=== PATIENT | male | born 1935 | race Caucasian/White ===

== ENCOUNTER 2017-01-01 09:05 | Emergency (ER) | payer MEDICARE ==
[~2017-01-01] VITALS: Ht 177.8 cm; Wt 98.0 kg
[2017-01-01 09:08] VITALS: BP 157/99; PULSE 76; RESP 20; TEMP 97.5; O2SAT 93
[2017-01-01] MEDS ORDERED: DIAZ2TAB PO (09:27)
[2017-01-01] MEDS ORDERED: LOSA100T PO (09:27)
[2017-01-01] MEDS ORDERED: BISO10TA2 PO (09:27)
[2017-01-01] MEDS ORDERED: ASPI81CH CHEW (09:27)
[2017-01-01] MEDS ORDERED: FURO1TAB62 PO (09:48)
--- NOTE | 2017-01-01 09:49 | PD ---
HPI Chief Complaint: Pain: Acute or Chronic Time Seen by Provider: 09:18 Travel History International Travel<30 days: No Contact w/Intl Traveler<30days: No Traveled to known affect area: No History of Present Illness HPI Is an 81-year-old man who presents to the emergency department complaining of soreness and achiness in his legs. His a history of some swelling in his legs at times. He states that over the past several days he's been on his feet more , his girlfriend been in the hospital slip and walking along hallway and walking her dog more. States since then he said more achiness in his legs had trouble getting up this morning because of pain. His a history of lymphoma in the past, hypertension hyperlipidemia and arthritis. He is on a small dose of HCTZ daily. He states he typically has trouble swallowing is on his feet a lot. Denies any kidney problems. States he had lab work couple weeks ago. No other complaints. History Past Medical History Narrative Medical Lymphoma Hypertension Hyperlipidemia Arthritis Social History Alcohol Use: No Tobacco Use: No Allergies-Medications (Allergen,Severity, Reaction): Coded Allergies: No Known Allergies (Unverified , 01/01/17) Reported Meds & Prescriptions Reported Meds & Active Scripts Active Reported Aspirin 81 Mg Chew 81 Mg CHEW DAILY Diazepam 2 Mg Tab 2 Mg PO HS PRN Bisoprolol-Hydrochlorothiazide 10-6.25 Mg Tab 1 Tab PO DAILY Losartan (Losartan Potassium) 100 Mg Tab 100 Mg PO DAILY Review of Systems Except as stated in HPI: all other systems reviewed are Neg Physical Exam Narrative GENERAL: 81-year-old man, no acute distress. SKIN: Focused skin assessment warm/dry. HEAD: Atraumatic. Normocephalic. EYES: Pupils equal and round. No scleral icterus. No injection or drainage. ENT: No nasal bleeding or discharge. Mucous membranes pink and moist. NECK: Trachea midline. No JVD. CARDIOVASCULAR: Regular rate and rhythm. No murmur appreciated. RESPIRATORY: No accessory muscle use. Clear to auscultation. Breath sounds equal bilaterally. GASTROINTESTINAL: Abdomen soft, non-tender, nondistended. Hepatic and splenic margins not palpable. MUSCULOSKELETAL: No obvious deformities. Some chronic edema in the lower extremities. Legs are little bit cool but still well perfused. Data Data Last Documented VS Vital Signs Date Time Temp Pulse Resp B/P Pulse Ox O2 Delivery O2 Flow Rate FiO2 01/01/17 09:08 97.5 76 20 157/99 93 Room Air [facility] Medical Decision Making Medical Screen Exam Complete: Yes Emergency Medical Condition: Yes Differential Diagnosis Edema, swelling, arthritis, back problems, other Narrative Course Medical decision making Very pleasant 81-year-old man presents emergent arm and increased soreness in his legs after increase walking for the past couple days. He is a little bit more edema than he typically does. Denies any shortness of breath, or history of kidney disease. Lab work done recently. He's been visiting his girlfriend here in the hospital a lot and so he wanted to stop by to see if there is anything else can do. He takes aspirin occasionally for pain. No other medications. Recommend Tylenol as needed for pain. We'll recommend 3 days of Lasix, and consider compression stockings and elevation. He'll follow-up with his primary physician. Diagnosis Primary Impression: Bilateral leg pain Additional Instructions: Keep legs elevated when you're at home. Consider compression stockings when your up on your feet. Take Lasix as prescribed for 3 days. Use acetaminophen as needed for pain. Follow-up with her primary doctor in the next one to 2 weeks for repeat evaluation. Med/Other Pt SpecificInfo: Prescription(s) given Scripts Furosemide (Lasix)20 Mg Tab20 Mg PO DAILY 3 Days Ref 0 Prov:Wing Colindres MD 01/01/17 Disposition: 01 DISCHARGE HOME Condition: Stable Wing Colindres MD Jan 01, 2017 09:49
[2017-01-01] MEDS ORDERED: ACETAMINOPHEN 325 MG TAB PO ONE (10:00)
== END 2017-01-01 10:01 | disposition home or self-care (01) ==
LOC: NEPD 09:05
DX: M79.605 Pain in left leg (principal); M79.604 Pain in right leg; I10 Essential (primary) hypertension
CPT/HCPCS: 99283

== ENCOUNTER 2017-01-04 02:03 | Inpatient (IN) | payer MEDICARE ==
[~2017-01-04] VITALS: Ht 177.8 cm; Wt 97.3 kg
[2017-01-04] VITALS (21 sets, daily range): BP systolic 128–238; BP diastolic 60–110; PULSE 67–89; RESP 18–24; TEMP 97–98.3; O2SAT 93–99
[~2017-01-04 02:03] MED LIST: ASPI81CH CHEW; BISO10TA2 PO; DIAZ2TAB PO; FURO1TAB62 PO; LOSA100T PO
[2017-01-04 03:27] LABS: AUTOMATED NEUTROPHIL # 4.7 TH/MM3 (1.8-7.7); BASOPHIL % 0.7 % (0.0-2.0); EOSINOPHIL # 0.2 TH/MM3 (0-0.4); EOSINOPHIL % 2.7 % (0.0-4.0); HEMATOCRIT 46.6 % (39.0-51.0); HEMO FLAGS DIFF FINAL; LYMPH % 21.9 % (9.0-44.0); LYMPHOCYTE # 1.5 TH/MM3 (1.0-4.8); MEAN CELL VOLUME 84.4 FL (80.0-100.0); MONO % 7.2 % (0.0-8.0); NEUT % 67.5 % (16.0-70.0); PLATELET COUNT 164 TH/MM3 (150-450); RED BLOOD COUNT 5.52 MIL/MM3 (4.50-5.90); RED CELL DISTRIBUTION WIDTH 14.2 % (11.6-17.2); WHITE BLOOD COUNT 6.9 TH/MM3 (4.0-11.0)
--- NOTE | 2017-01-04 03:35 | PD ---
HPI Chief Complaint: Edema Time Seen by Provider: 02:32 Travel History International Travel<30 days: No Contact w/Intl Traveler<30days: No Traveled to known affect area: No History of Present Illness HPI The patient is an 81 year old male who presents to the [facility] emergency department with a history of awakening from sound sleep with bilateral shoulder , arm pain, neck pain, and lower extremity pain prior to her arrival. The patient reports that he is currently staying at a friend's house who is hospitalized, as he is taking care of her dog. He reports that he has had increased pain in his extremities since being more mobile than usual while caring for this friend's animal. He also reports that he has been back and forth to the hospital which is also required more activity than his usual. The patient reports that he has chronic lower extremity edema. He reports that he was in the emergency department on January 01 for evaluation of his leg pains and edema. The patient was given a prescription for Lasix to complete over a three- day period, however he reports that he was are he on hydrochlorothiazide and decided not to start this medication since it is also a diuretic. The patient denies having any chest pain, chest pressure, or shortness of breath. By the time the patient arrived in the emergency department for evaluation he reports that his pain has improved. He reports that he became anxious and should have just taken a Valium instead of coming to the emergency department. He reports that he has an appointment scheduled with his primary care physician for . On review of systems, the patient denies any recent fevers, cough, congestion, chest pain, shortness of breath, abdominal pain, vomiting, diarrhea , urinary symptoms, or neurologic symptoms. 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 Hx Anticoagulant Therapy: No Cancer: Yes (lymphoma) Cardiovascular Problems: Yes (HTN) Diabetes: No Hypertension: Yes Past Surgical History Narrative Surgical The patient's past surgical history is unremarkable. Social History Alcohol Use: No Tobacco Use: No Substance Use: No Allergies-Medications (Allergen,Severity, Reaction): Coded Allergies: No Known Allergies (Unverified , 01/04/17) Reported Meds & Prescriptions Reported Meds & Active Scripts Active Lasix (Furosemide) 20 Mg Tab 20 Mg PO DAILY 3 Days Reported Aspirin 81 Mg Chew 81 Mg CHEW DAILY Diazepam 2 Mg Tab 2 Mg PO HS PRN Bisoprolol-Hydrochlorothiazide 10-6.25 Mg Tab 1 Tab PO DAILY Losartan (Losartan Potassium) 100 Mg Tab 100 Mg PO DAILY Review of Systems Except as stated in HPI: all other systems reviewed are Neg General / Constitutional: No: Fever Eyes: No: Visual changes HENT: Positive: Neck Pain, No: Headaches, Congestion, Neck Stiffness Cardiovascular: Positive: Edema, No: Chest Pain or Discomfort Respiratory: No: Shortness of Breath Gastrointestinal: No: Abdominal Pain Genitourinary: No: Dysuria Musculoskeletal: Positive: Myalgias, Arthralgias, Edema, Pain Skin: No Rash Neurologic: No: Weakness Psychiatric: No: Depression Endocrine: No: Polydipsia Hematologic/Lymphatic: No: Easy Bruising Physical Exam Narrative General: The patient is a well-developed well-nourished male in no acute distress. Head and Neck exam: Head is normocephalic atraumatic. Eyes: EOMI, pupils are equal round and reactive to light. Nose: Midline septum with pink mucous membranes Mouth: Dentition unremarkable. Moist mucus membranes. Posterior oropharynx is not erythematous. No tonsillar hypertrophy. Uvula midline. Airway patent. Neck: No palpable lymphadenopathy. No nuchal rigidity. No thyromegaly. No spinous process tenderness to palpation. No step-off or crepitus. No erythema or ecchymosis. Cardiovascular: Regular rate and rhythm without murmurs, gallops, or rubs. No pulse deficit to the extremities. Lungs: Clear to auscultation bilaterally. No wheezes, rhonchi, or rales. Abdomen: Soft, without tenderness to palpation in all 4 quadrants of the abdomen. No guarding, rebound, or rigidity. Normal bowel sounds are audible. No tenderness on palpation of McBurney's point. Negative Blanco's sign. Extremities: No clubbing or cyanosis. The patient has 1+ pitting edema bilateral lower extremities. 2+ pulses in all 4 extremities. No calf tenderness on palpation. Back: No spinous process tenderness to palpation. No costovertebral angle tenderness to palpation. Neurologic Exam: Grossly nonfocal. Skin Exam: No rash noted. Intact skin that is warm and dry. Data Data Last Documented VS Vital Signs Date Time Temp Pulse Resp B/P Pulse Ox O2 Delivery O2 Flow Rate FiO2 01/04/17 04:28 77 18 217/98 99 Room Air 01/04/17 02:05 98.3 Orders Complete Blood Count With Diff (01/04/17 02:53) Comprehensive Metabolic Panel (01/04/17 02:53) B-Type Natriuretic Peptide (01/04/17 02:53) Magnesium (Mg) (01/04/17 02:53) Iv Access Insert/Monitor (01/04/17 02:53) Ecg Monitoring (01/04/17 02:53) Oximetry (01/04/17 02:53) Thyroid Stimulating Hormone (01/04/17 02:53) Electrocardiogram (01/04/17 04:16) Calcium Gluconate Inj (Calcium Gluconate (01/04/17 04:30) Potassium Chloride Eff (K-Lyte Cl Eff) (01/04/17 04:30) Magnesium Sulfate 1 Gm Premix (Magnesium (01/04/17 04:30) Admit To Inpatient (01/04/17 ) Code Status (01/04/17 04:50) Vital Signs (Adult) Q4H (01/04/17 04:50) Activity Oob With Assistance (01/04/17 04:50) Wooden Tank Erector / Telemetry .CONTINUOUS (01/04/17 04:50) Diet Heart Healthy (01/04/17 Breakfast) Sodium Chloride 0.9% Flush (Ns Flush) (01/04/17 05:00) Sodium Chloride 0.9% Flush (Ns Flush) (01/04/17 09:00) Acetaminophen (Tylenol) (01/04/17 05:00) Ondansetron Inj (Zofran Inj) (01/04/17 05:00) Temazepam (Restoril) (01/04/17 05:00) Basic Metabolic Panel (Bmp) (01/05/17 06:00) Complete Blood Count With Diff (01/05/17 06:00) Pt Request For Service (01/04/17 04:50) Scd Bilateral/Knee High JIMENA.BID (01/04/17 04:50) Naloxone Inj (Narcan Inj) (01/04/17 05:00) Magnesium Hydroxide Liq (Milk Of Magnesi (01/04/17 05:00) Inpatient Certification (01/04/17 ) Basic Metabolic Panel (Bmp) (01/04/17 12:00) Magnesium Sulfate 1 Gm Premix (Magnesium (01/04/17 05:00) Sodium Chlor 0.45%... W/Potassium Chlori (01/04/17 05:00) Aspirin Chew (Aspirin Chew) (01/04/17 09:00) Losartan (Cozaar) (01/04/17 09:00) Bisoprolol-Hctz 10-6.25 Mg (Ziac 10-6.25 (01/04/17 09:00) Labetalol Inj (Trandate Inj) (01/04/17 05:00) Basic Metabolic Panel (Bmp) (01/04/17 05:02) Lorazepam Inj (Ativan Inj) (01/04/17 05:00) Admit Order (Ed Use Only) (01/04/17 05:04) Labs Laboratory Tests Test 01/04/17 03:07 White Blood Count 6.9 TH/MM3 Red Blood Count 5.52 MIL/MM3 Hemoglobin 14.9 GM/DL Hematocrit 46.6 % Mean Corpuscular Volume 84.4 FL Mean Corpuscular Hemoglobin 27.0 PG Mean Corpuscular Hemoglobin 32.0 % Concent Red Cell Distribution Width 14.2 % Platelet Count 164 TH/MM3 Mean Platelet Volume 7.6 FL Neutrophils (%) (Auto) 67.5 % Lymphocytes (%) (Auto) 21.9 % Monocytes (%) (Auto) 7.2 % Eosinophils (%) (Auto) 2.7 % Basophils (%) (Auto) 0.7 % Neutrophils # (Auto) 4.7 TH/MM3 Lymphocytes # (Auto) 1.5 TH/MM3 Monocytes # (Auto) 0.5 TH/MM3 Eosinophils # (Auto) 0.2 TH/MM3 Basophils # (Auto) 0.0 TH/MM3 CBC Comment DIFF FINAL Differential Comment Sodium Level 151 MEQ/L Potassium Level 2.1 MEQ/L Chloride Level 121 MEQ/L Carbon Dioxide Level 20.4 MEQ/L Anion Gap 10 MEQ/L Blood Urea Nitrogen 11 MG/DL Creatinine 0.34 MG/DL Estimat Glomerular Filtration 249 ML/MIN Rate Random Glucose 79 MG/DL Calcium Level LESS THAN 5.0 MG/DL Protein Corrected Calcium 6.4 MG/DL Magnesium Level 1.0 MG/DL Total Bilirubin 0.3 MG/DL Aspartate Amino Transf 20 U/L (AST/SGOT) Alanine Aminotransferase 19 U/L (ALT/SGPT) Alkaline Phosphatase 43 U/L B-Type Natriuretic Peptide 86 PG/ML Total Protein 3.7 GM/DL Albumin 1.8 GM/DL Thyroid Stimulating Hormone 0.230 uIU/ML [address] [place] [address] Medical Decision Making Medical Screen Exam Complete: Yes Emergency Medical Condition: Yes Medical Record Reviewed: Yes Differential Diagnosis Hypoalbuminemia, versus electrolyte arrangements causing muscle cramping, versus increased arthritic pain, versus edema related to prolonged standing on his feet. Narrative Course During the course of the patients emergency department visit, the patients history, examination, and differential diagnosis were reviewed with the patient. The patient had IV access obtained and blood work sent for analysis. The patient was placed on a youth nutritional monitor with oximetry and blood pressure monitoring. An ECG was done. The patient's ECG reveals a sinus rhythm with a first-degree A-V block, heart rate of 74, marked right axis deviation, intraventricular conduction delay with a QRS duration of 165 ms, QTC 456 ms. The patient was initially provided labetalol 10 mg IV for hypertension. The patients laboratory studies were reviewed and remarkable for a CBC within normal limits, CMP is remarkable for a sodium of 151, potassium 2.1, chloride 121, CO2 20.4, creatinine 0.34, calcium less than 5, protein corrected calcium 6.4, magnesium 1, alkaline phosphatase 43, total protein 3.7, albumin 1.8, TSH 0.23. The patient was started on magnesium 1 g over one hour, calcium gluconate 1 g IV , potassium chloride 50 mEq by mouth 1. The patients results were discussed with the patient, including the plan of care. I explained that further testing and/ or monitoring is indicated based on the patients history, examination, and/ or laboratory findings. Therefore, I recommended admission for additional evaluation. The patient expressed understanding and was agreeable with this plan. The patient was admitted to the hospital in stable condition and sent to a bed under the care of the [facility]. Physician Communication Physician Communication The patient's case was discussed with Dr. Frausto who did agree to admit the patient for further evaluation and treatment at this time. Diagnosis Primary Impression: Bilateral leg pain Additional Impressions: Hypocalcemia Hypokalemia Hypomagnesemia Hyperthyroidism Admitting Information Admitting Physician Requests: Admit Karlee Petersen MD Jan 04, 2017 03:35
[2017-01-04 04:05] LABS: ALT (GPT) 19 U/L (12-78); ANION GAP 10 MEQ/L (5-15); AST (GOT) 20 U/L (15-37); BICARBONATE 20.4 MEQ/L (21.0-32.0); BLOOD UREA NITROGEN 11 MG/DL (7-18); CHLORIDE 121 MEQ/L (98-107); GLOMERULAR FILTRATION RATE 249 ML/MIN (>89); SODIUM (NA) 151 MEQ/L (136-145)
[2017-01-04 04:11] LABS: POTASSIUM 2.1 MEQ/L (3.5-5.1)
[2017-01-04 04:16] LABS: ALKALINE PHOSPHATASE 43 U/L (45-117); TOTAL BILIRUBIN ADULT 0.3 MG/DL (0.2-1.0)
[2017-01-04 04:17] LABS: CALCIUM-PROTEIN CORRECTED 6.4 MG/DL (8.5-10.1)
[2017-01-04] MEDS ORDERED: CALCIUM GLUCONATE INJ 1 GM in DEXTROSE 5% IN WATER 100ML INJ 100 ML IV ONE ×2 (04:30)
[2017-01-04] MEDS: MAGNESIUM SULFATE 1 GM PREMIX 100 ML IV SCH ×4 (04:30→06:00)
[2017-01-04] MEDS ORDERED: POTASSIUM CHLORIDE 25 MEQ EFFERVESCENT TAB PO ONE (04:30)
[2017-01-04] MEDS ORDERED: LABETALOL HCL 100 MG/20 ML VIAL IV PUSH ONE (05:00)
[2017-01-04] MEDS ORDERED: NALOXONE HCL 0.4 MG/ML AMP IV PRN (05:00)
[2017-01-04] MEDS ORDERED: SODIUM CHLORIDE 0.9% FLUSH 10 ML FLUSH IV FLUSH PRN (05:00)
[2017-01-04] MEDS ORDERED: POTASSIUM CHLORIDE INJ 40 MEQ in SODIUM CHLOR 0.45% 1000 ML INJ 1,000 ML IV SCH (05:00)
[2017-01-04] MEDS ORDERED: ONDANSETRON HCL 4 MG/2 ML VIAL IVP PRN (05:00)
[2017-01-04] MEDS ORDERED: TEMAZEPAM 15 MG CAP PO PRN (05:00)
[2017-01-04] MEDS ORDERED: ACETAMINOPHEN 325 MG TAB PO PRN (05:00)
[2017-01-04] MEDS ORDERED: MAGNESIUM HYDROXIDE SUSP 30 ML CUP PO PRN (05:00)
[2017-01-04] MEDS ORDERED: LORazepam 2 MG/ML VIAL IV PUSH PRN (05:00)
[2017-01-04] MEDS ORDERED: cloNIDine HCL 0.2 MG TAB PO PRN (06:45)
[2017-01-04] MEDS ORDERED: ENALAPRILAT 1.25 MG/ML VIAL IV PUSH PRN (06:45)
[2017-01-04] MEDS: NIFEdipine 60 MG SUSTAINED RELEASE TAB PO SCH ×2 (06:52→09:00)
[2017-01-04] MEDS: ASPIRIN 81 MG CHEW TAB CHEW SCH (08:05)
[2017-01-04] MEDS: LOSARTAN 50 MG TAB PO SCH (08:05)
--- NOTE | 2017-01-04 08:38 | HHI.HP ---
HPI Service [facility] Hospitalists Primary Care Physician Emilio Santacruz MD Admission Diagnosis Electrolyte derangements, hyperthyroid Chief Complaint: genralized pain Travel History International Travel<30 Days: No Contact w/Intl Traveler <30 Da: No Traveled to Known Affected Are: No History of Present Illness Patient is a pleasant 81-year-old male with history of non-Hodgkin's lymphoma, prostate cancer, renal mass (no evidence of malignancy on biopsy), and hypertension. Yesterday evening patient awoke from sleep with bilateral shoulder pain, arm pain, neck pain, as well as lower extremity pain. This led to patient seeking attention at the [facility]. Patient reports that she has been more active than usual caring for a friend's dog. As well as making trips back and forth to the hospital to visit her friend. Patient also complains of increased lower extremity edema. Patient recently evaluated at the [facility] 01/01/17 for leg pain and edema. At that time patient was given a prescription of Lasix for 3 days. However, patient did not start this prescription. He felt his current hydrochlorothiazide should be adequate. Patient reported improvement in pain by the time he had reached the ER last night. Prior to arriving at the ER patient took Valium for anxiety. Review of Systems Constitutional: DENIES: Diaphoretic episodes, Fatigue, Fever, Weight gain, Weight loss, Chills, Dizziness, Change in appetite, Night Sweats Endocrine: DENIES: Heat/cold intolerance, Polydipsia, Polyuria, Polyphagia Eyes: DENIES: Blurred vision, Diplopia, Eye inflammation, Eye pain, Vision loss , Photosensitivity, Double Vision Ears, nose, mouth, throat: DENIES: Tinnitus, Hearing loss, Vertigo, Nasal discharge, Oral lesions, Throat pain, Hoarseness, Ear Pain, Running Nose, Epistaxis, Sinus Pain, Toothache, Odynophagia Respiratory: DENIES: Apneas, Cough, Snoring, Wheezing, Hemoptysis, Sputum production, Shortness of breath Cardiovascular: DENIES: Chest pain, Palpitations, Syncope, Dyspnea on Exertion , PND, Lower Extremity Edema, Orthopnea, Claudication Gastrointestinal: DENIES: Abdominal pain, Black stools, Bloody stools, BRB per rectum, Constipation, Diarrhea, GERD, Nausea, Reflux, Vomiting, Difficulty Swallowing, Anorexia Genitourinary: DENIES: Urinary frequency, Urinary incontinence, Urgency, Hematuria, Dysuria, Nocturia Musculoskeletal: COMPLAINS OF: Joint pain, Muscle aches, Stiffness, Back pain, Neck pain, DENIES: Joint Swelling Integumentary: DENIES: Abnormal pigmentation, Nail changes, Pruritus, Rash Hematologic/lymphatic: DENIES: Bruising, Lymphadenopathy Immunologic/allergic: DENIES: Eczema, Urticaria Neurologic: DENIES: Abnormal gait, Headache, Localized weakness, Paresthesias, Seizures, Speech Problems, Tremor, Poor Balance Psychiatric: COMPLAINS OF: Anxiety, DENIES: Confusion, Mood changes, Depression, Hallucinations, Agitation, Suicidal Ideation, Homicidal Ideation, Delusions, History of Bipolar, History of Schizophrenia Past Family Social History Past Medical History 1) non-Hodgkin's lymphoma - Follicular lymphoma, 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 Status post 6 cycles of CHOPRituxan. Last cycle given in November 2004 - Status post left periorbital biopsy done at [facility] by Dr. Moreno Pizano February 2012 consistent with CD20 positive non-Hodgkin's lymphoma. - Treated with external beam radiation of the left periorbital area, completed radiation therapy June 2012 -CT chest, abdomen, pelvis obtained October 2016 showed no evidence of recurrent lymphoma - Pt follows with Dr. 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 Patient referred to Dr. 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 10) hyperlipidemia Past Surgical History 1) mediastinal endoscopy 2) prostate surgery 3) EGD 4) colonoscopy Reported Medications Reported Meds & Active Scripts Active Lasix (Furosemide) 20 Mg Tab 20 Mg PO DAILY 3 Days Reported Aspirin 81 Mg Chew 81 Mg CHEW DAILY Diazepam 2 Mg Tab 2 Mg PO HS PRN Bisoprolol-Hydrochlorothiazide 10-6.25 Mg Tab 1 Tab PO DAILY Losartan (Losartan Potassium) 100 Mg Tab 100 Mg PO DAILY Allergies: Coded Allergies: No Known Allergies (Unverified , 01/05/17) Family History Noncontributory Social History - - Current smoker - No alcohol use - No illicit street drugs Physical Exam Vital Signs Vital Signs Date Time Temp Pulse Resp B/P Pulse Ox O2 Delivery O2 Flow Rate FiO2 01/04/17 06:10 72 01/04/17 06:00 97.9 70 24 230/96 93 01/04/17 04:28 77 18 217/98 99 Room Air 01/04/17 02:57 95 Room Air 01/04/17 02:05 98.3 77 18 238/110 95 Physical Exam GENERAL: This is a well-nourished, well-developed patient, in no apparent distress. SKIN: No rashes, ecchymoses or lesions. Cool and dry. HEAD: Atraumatic. Normocephalic. No temporal or scalp tenderness. EYES: Pupils equal round and reactive. Extraocular motions intact. No scleral icterus. No injection or drainage. ENT: Nose without bleeding, purulent drainage or septal hematoma. Throat without erythema, tonsillar hypertrophy or exudate. Uvula midline. Airway patent. NECK: Trachea midline. No JVD or lymphadenopathy. Supple, nontender, no meningeal signs. CARDIOVASCULAR: Regular rate and rhythm without murmurs, gallops, or rubs. RESPIRATORY: Clear to auscultation. Breath sounds equal bilaterally. No wheezes , rales, or rhonchi. GASTROINTESTINAL: Abdomen soft, non-tender, nondistended. No hepato-splenomegaly , or palpable masses. No guarding. MUSCULOSKELETAL: Extremities without clubbing, cyanosis, or edema. No joint tenderness, effusion, or edema noted. No calf tenderness. Negative Homans sign bilaterally. NEUROLOGICAL: Awake and alert. Cranial nerves II through XII intact. Motor and sensory grossly within normal limits. Five out of 5 muscle strength in all muscle groups. Normal speech. Laboratory Laboratory Tests Test 01/04/17 03:07 White Blood Count 6.9 Red Blood Count 5.52 Hemoglobin 14.9 Hematocrit 46.6 Mean Corpuscular Volume 84.4 Mean Corpuscular Hemoglobin 27.0 Mean Corpuscular Hemoglobin 32.0 Concent Red Cell Distribution Width 14.2 Platelet Count 164 Mean Platelet Volume 7.6 Neutrophils (%) (Auto) 67.5 Lymphocytes (%) (Auto) 21.9 Monocytes (%) (Auto) 7.2 Eosinophils (%) (Auto) 2.7 Basophils (%) (Auto) 0.7 Neutrophils # (Auto) 4.7 Lymphocytes # (Auto) 1.5 Monocytes # (Auto) 0.5 Eosinophils # (Auto) 0.2 Basophils # (Auto) 0.0 CBC Comment DIFF FINAL Differential Comment Sodium Level 151 Potassium Level 2.1 Chloride Level 121 Carbon Dioxide Level 20.4 Anion Gap 10 Blood Urea Nitrogen 11 Creatinine 0.34 Estimat Glomerular Filtration 249 Rate Random Glucose 79 Calcium Level LESS THAN 5.0 Protein Corrected Calcium 6.4 Magnesium Level 1.0 Total Bilirubin 0.3 Aspartate Amino Transf 20 (AST/SGOT) Alanine Aminotransferase 19 (ALT/SGPT) Alkaline Phosphatase 43 B-Type Natriuretic Peptide 86 Total Protein 3.7 Albumin 1.8 Thyroid Stimulating Hormone 0.230 3rd Gen Result Diagram: 01/04/1730601/04/17306 Assessment and Plan Problem List: (1) Bilateral leg pain Status: Acute Plan: - Patient presented to ER with complaint of diffuse pain at multiple sites: Neck , shoulders - improved by the time pt had presented to the ER - likely d/t electrolyte abnormalities (2) Hypokalemia Status: Acute Plan: - etiology of pt's multiple electrolyte abnormalities is unclear - pt received repletion in the ER. - awaiting repeat labs this AM - suspect pt may require additional repletion (3) Hypocalcemia Status: Acute Plan: - see above - pt received calcium gluconate this AM in ER - await repeat BMP at noon (4) Hypomagnesemia Status: Acute Plan: - replete - see above (5) Abnormal thyroid blood test Status: Acute Plan: - repeat when more stable (6) Thyroid nodule Status: Acute Plan: - Pt referred to Endocrinology? by his Oncologist (7) H/O lymphoma Status: Acute Plan: - Pt follows with Oncology, Dr. Karina Blackburn (8) H/O prostate cancer Status: Acute Plan: - Pt follows with Urology, Dr. Wing Zuniga Physician Certification 2 Midnight Certification Type: Admission for Inpatient Services Order for Inpatient Services The services are ordered in accordance with Medicare regulations or non- Medicare payer requirements, as applicable. In the case of services not specified as inpatient-only, they are appropriately provided as inpatient services in accordance with the 2-midnight benchmark. Estimated LOS (days): 3 3 days is the estimated time the patient will need to remain in the hospital, assuming treatment plan goals are met and no additional complications. Post-Hospital Plan: Not yet determined Jamie Frausto DO Jan 04, 2017 08:38
[2017-01-04] MEDS: SODIUM CHLORIDE 0.9% FLUSH 10 ML FLUSH IV FLUSH SCH ×2 (09:00→21:00)
[2017-01-04] MEDS ORDERED: BISOPROLOL PO SCH (09:00)
[2017-01-04] MEDS ORDERED: HCTZ PO SCH (09:00)
[2017-01-04] MEDS ORDERED: [UNRECOGNIZED DRUG - CODE] (10:53)
[2017-01-04] MEDS ORDERED: VITACAP7 PO (11:00)
[2017-01-04] MEDS ORDERED: GLUC500T4 PO (11:00)
[2017-01-04] MEDS ORDERED: POTA1TAB77 PO (11:00)
[2017-01-04 12:50] LABS: BICARBONATE 35.9 MEQ/L (21.0-32.0); POTASSIUM 3.7 MEQ/L (3.5-5.1)
[2017-01-04 12:54] LABS: MAGNESIUM 2.5 MG/DL (1.5-2.5)
--- NOTE | 2017-01-04 13:12 | EKG ---
Date Performed: 01/04/2017 Time Performed: 04:25:41 PTAGE: 81 years EKG: Sinus rhythm WITH FIRST DEGREE AV BLOCK MARKED RIGHT AXIS DEVIATION INTRAVENTRICULAR CONDUCTION DELAY POSSIBLE IN FERIOR MYOCARDIAL INFARCTION ABNORMAL ECG INTERPRETATION BASED ON A DEFAULT AGE OF 40 YEARS NO PREVIOUS TRACING DOCTOR: Carlo Chang Interpretating Date/Time 01/04/2017 13:09:51
[2017-01-04 15:03] LABS: BLOOD, URINE SMALL (NEG); COMMENT (UR) CULT NOT INDICATED; CULTURE IF INDICATED CULT NOT INDICATED; GLUCOSE,URINE NEG (NEG); KETONE, URINE NEG (NEG); NITRITE,URINE NEG (NEG); URINE COLOR LIGHT-YELLOW (YELLW/STRAW)
[2017-01-05] VITALS (17 sets, daily range): BP systolic 137–154; BP diastolic 71–92; PULSE 46–98; RESP 18–22; TEMP 96.6–97.9; O2SAT 92–95
[2017-01-05 06:44] LABS: AUTOMATED NEUTROPHIL # 4.5 TH/MM3 (1.8-7.7); BASOPHIL # 0.1 TH/MM3 (0-0.2); EOSINOPHIL # 0.4 TH/MM3 (0-0.4); EOSINOPHIL % 5.4 % (0.0-4.0); HEMATOCRIT 47.1 % (39.0-51.0); HEMO FLAGS DIFF FINAL; LYMPH % 22.1 % (9.0-44.0); LYMPHOCYTE # 1.6 TH/MM3 (1.0-4.8); MEAN CORPUSCULAR HEMOGLOBIN 27.8 PG (27.0-34.0); MEAN CORPUSCULAR HGB CONC 33.1 % (32.0-36.0); NEUT % 62.5 % (16.0-70.0); PLATELET COUNT 192 TH/MM3 (150-450); RED BLOOD COUNT 5.62 MIL/MM3 (4.50-5.90); WHITE BLOOD COUNT 7.1 TH/MM3 (4.0-11.0)
[2017-01-05 07:20] LABS: BICARBONATE 30.3 MEQ/L (21.0-32.0); MAGNESIUM 2.4 MG/DL (1.5-2.5); POTASSIUM 3.9 MEQ/L (3.5-5.1)
[2017-01-05] MEDS: NIFEdipine 60 MG SUSTAINED RELEASE TAB PO SCH (08:27)
[2017-01-05] MEDS: LOSARTAN 50 MG TAB PO SCH (08:27)
[2017-01-05] MEDS: ASPIRIN 81 MG CHEW TAB CHEW SCH (08:27)
[2017-01-05] MEDS: SODIUM CHLORIDE 0.9% FLUSH 10 ML FLUSH IV FLUSH SCH ×2 (08:27→20:45)
--- NOTE | 2017-01-05 09:57 | HHI.PR ---
Subjective Remarks Pt overall feeling better today He is very concerned about the recurrent swelling he has been getting in his LE Last night pt took Ativan for anxiety and apparently the medication made him more anxious and angry per the pt. Pt BP overnight was low/normal but this morning was elevated into the 160's systolic at the time of examination Objective Vitals Vital Signs Date Time Temp Pulse Resp B/P Pulse Ox O2 Delivery O2 Flow Rate FiO2 01/05/17 08:15 97.7 89 20 149/86 95 01/05/17 07:01 86 01/05/17 03:20 97.8 90 18 154/80 92 01/05/17 03:00 84 01/05/17 02:00 71 01/05/17 01:00 71 01/05/17 00:00 71 01/04/17 23:30 97.8 89 20 154/84 94 01/04/17 23:00 76 01/04/17 22:00 71 01/04/17 21:00 76 01/04/17 20:00 71 01/04/17 19:30 97.8 80 20 140/79 94 01/04/17 19:23 76 01/04/17 18:01 71 01/04/17 17:01 74 01/04/17 16:00 72 01/04/17 15:45 97.0 76 20 152/76 95 01/04/17 12:53 98.1 72 20 128/60 94 01/04/17 12:00 78 01/04/17 01/04/17 01/05/17 15:00 23:00 07:00 Intake Total 732 ml 480 ml 240 ml Output Total 800 ml 525 ml 1175 ml Balance -68 ml -45 ml -935 ml Intake Oral 400 ml 240 ml 240 ml IV Total 332 ml 240 ml Output Urine Total 800 ml 525 ml 1175 ml # Voids 6 4 # Bowel Movements 0 1 Result Diagram: 01/05/17 0515 01/05/1715 Other Results Laboratory Tests Test 01/04/17 01/04/17 01/04/17 01/04/17 03:07 11:59 14:40 19:56 White Blood Count 6.9 TH/MM3 Red Blood Count 5.52 MIL/MM3 Hemoglobin 14.9 GM/DL Hematocrit 46.6 % Mean Corpuscular Volume 84.4 FL Mean Corpuscular Hemoglobin 27.0 PG Mean Corpuscular Hemoglobin 32.0 % Concent Red Cell Distribution Width 14.2 % Platelet Count 164 TH/MM3 Mean Platelet Volume 7.6 FL Neutrophils (%) (Auto) 67.5 % Lymphocytes (%) (Auto) 21.9 % Monocytes (%) (Auto) 7.2 % Eosinophils (%) (Auto) 2.7 % Basophils (%) (Auto) 0.7 % Neutrophils # (Auto) 4.7 TH/MM3 Lymphocytes # (Auto) 1.5 TH/MM3 Monocytes # (Auto) 0.5 TH/MM3 Eosinophils # (Auto) 0.2 TH/MM3 Basophils # (Auto) 0.0 TH/MM3 CBC Comment DIFF FINAL Differential Comment Sodium Level 151 MEQ/L 144 MEQ/L Potassium Level 2.1 MEQ/L 3.7 MEQ/L Chloride Level 121 MEQ/L 105 MEQ/L Carbon Dioxide Level 20.4 MEQ/L 35.9 MEQ/L Anion Gap 10 MEQ/L 3 MEQ/L Blood Urea Nitrogen 11 MG/DL 12 MG/DL Creatinine 0.34 MG/DL 0.81 MG/DL Estimat Glomerular Filtration 249 ML/MIN 91 ML/MIN Rate Random Glucose 79 MG/DL 117 MG/DL Calcium Level LESS THAN 5.0 8.7 MG/DL MG/DL Protein Corrected Calcium 6.4 MG/DL Magnesium Level 1.0 MG/DL 2.5 MG/DL Total Bilirubin 0.3 MG/DL Aspartate Amino Transf 20 U/L (AST/SGOT) Alanine Aminotransferase 19 U/L (ALT/SGPT) Alkaline Phosphatase 43 U/L B-Type Natriuretic Peptide 86 PG/ML Total Protein 3.7 GM/DL Albumin 1.8 GM/DL Thyroid Stimulating Hormone 0.230 uIU/ML 3rd Gen Total Creatine Kinase 235 U/L Urine Color LIGHT-YELLOW Urine Turbidity CLEAR Urine pH 7.0 Urine Specific [place] 1.008 Urine Protein NEG mg/dL Urine Glucose (UA) NEG mg/dL Urine Ketones NEG mg/dL Urine Occult Blood SMALL Urine Nitrite NEG Urine Bilirubin NEG Urine Urobilinogen LESS THAN 2.0 MG/DL Urine Leukocyte Esterase NEG Urine RBC 27 /hpf Urine WBC LESS THAN 1 /hpf Microscopic Urinalysis Comment CULT NOT INDICATED Urine Osmolality 362 MOSM/KG Serum Osmolality 294 MOSM/KG Test 01/05/17 05:15 White Blood Count 7.1 TH/MM3 Red Blood Count 5.62 MIL/MM3 Hemoglobin 15.6 GM/DL Hematocrit 47.1 % Mean Corpuscular Volume 84.0 FL Mean Corpuscular Hemoglobin 27.8 PG Mean Corpuscular Hemoglobin 33.1 % Concent Red Cell Distribution Width 15.0 % Platelet Count 192 TH/MM3 Mean Platelet Volume 7.8 FL Neutrophils (%) (Auto) 62.5 % Lymphocytes (%) (Auto) 22.1 % Monocytes (%) (Auto) 9.0 % Eosinophils (%) (Auto) 5.4 % Basophils (%) (Auto) 1.0 % Neutrophils # (Auto) 4.5 TH/MM3 Lymphocytes # (Auto) 1.6 TH/MM3 Monocytes # (Auto) 0.6 TH/MM3 Eosinophils # (Auto) 0.4 TH/MM3 Basophils # (Auto) 0.1 TH/MM3 CBC Comment DIFF FINAL Differential Comment Sodium Level 142 MEQ/L Potassium Level 3.9 MEQ/L Chloride Level 106 MEQ/L Carbon Dioxide Level 30.3 MEQ/L Anion Gap 6 MEQ/L Blood Urea Nitrogen 12 MG/DL Creatinine 0.73 MG/DL Estimat Glomerular Filtration 103 ML/MIN Rate Random Glucose 105 MG/DL Calcium Level 8.7 MG/DL Magnesium Level 2.4 MG/DL Objective Remarks General: NAD, AAOx3 Chest: CTA bilaterally Cardiac: Regular Abd: +BS, soft ND/NT Ext: Trace bilateral LE edema A/P Problem List: (1) Bilateral leg pain Status: Acute Plan: - Patient presented to ER with complaint of diffuse pain at multiple sites: Neck , shoulders - improved by the time pt had presented to the ER - likely d/t electrolyte abnormalities (2) HTN (hypertension), benign Status: Chronic Plan: - Pt is on Losartan 100mg po daily, Lasix 40mg po daily, and Bisoprolol/HCTZ at home. - Pts BP was quite elevated at admission. - Pt was continued on the Losartan 100mg po daily - Procardia XL 60mg po daily was added at admission - Monitor BP reading. (3) Hypokalemia Status: Acute Plan: - Etiology of pt's multiple electrolyte abnormalities is unclear - Pt received repletion. - Repeat labs this AM are much improved. - Pt is on Lasix and HCTZ as an outpt. - He complains of swelling in the LE more recently and has not been seen by Cariology for several years. - Will check 2D echo during this admission. (4) Hypocalcemia Status: Acute Plan: - see above - pt received calcium gluconate this AM in ER - await repeat BMP at noon (5) Hypomagnesemia Status: Acute Plan: - replete - see above (6) Abnormal thyroid blood test Status: Acute Plan: - repeat when more stable (7) Thyroid nodule Status: Acute Plan: - Pt referred to Endocrinology? by his Oncologist (8) H/O lymphoma Status: Acute Plan: - Pt follows with Oncology, Dr. Karina Blackburn (9) H/O prostate cancer Status: Acute Plan: - Pt follows with Urology, Dr. Wing Zuniga Assessment and Plan Patient examined. Assessment and plan formulated with Cristina Denis PA-C. I agree with the above. Cristina Denis Jan 05, 2017 09:57 Jamie Frausto DO Jan 06, 2017 13:43
[2017-01-06] VITALS (7 sets, daily range): BP systolic 122–168; BP diastolic 58–102; PULSE 94–110; RESP 18; TEMP 96.6–97.5; O2SAT 93–97
[2017-01-06] MEDS ORDERED: DIAZEPAM 2 MG TAB PO PRN (02:30)
[2017-01-06 07:33] LABS: BICARBONATE 26.5 MEQ/L (21.0-32.0); MAGNESIUM 2.8 MG/DL (1.5-2.5); POTASSIUM 4.1 MEQ/L (3.5-5.1)
[2017-01-06] MEDS: LOSARTAN 50 MG TAB PO SCH (07:54)
[2017-01-06] MEDS: ASPIRIN 81 MG CHEW TAB CHEW SCH (07:54)
[2017-01-06] MEDS: NIFEdipine 60 MG SUSTAINED RELEASE TAB PO SCH (07:54)
[2017-01-06] MEDS: SODIUM CHLORIDE 0.9% FLUSH 10 ML FLUSH IV FLUSH SCH (07:55)
[2017-01-06] MEDS ORDERED: NIFE60TA8 PO (13:26)
--- NOTE | 2017-01-06 13:36 | HHI.FF ---
Face to Face Verification Diagnosis: (1) HTN (hypertension), benign (2) H/O lymphoma (3) H/O prostate cancer (4) Abnormal thyroid blood test Home Health Nursing Order: Medical education Signs/symptoms of disease process Medication education-adverse effect Nursing assessment with vital signs Instructions: obtain BMP on 01/10/17 and fax to pt's PCP, Dr. Emilio Santacruz I have seen patient Frederic Green on 01/06/17. My clinical findings support the need for the requested home health care services because: Ltd mobility - disease progression Deconditioned w/ increased weakness Med compliance is questionable Limited ability to care for self Need for psychosocial assistance Impaired cognition/judgement I certify that my clinical findings support that this patient is homebound because: Impaired cognitive ability/safety Unsafe to leave home unassisted Need for psychosocial assistance Unable to use public transportation Jamie Frausto DO Jan 06, 2017 13:36
--- NOTE | 2017-01-06 13:43 | HHI.DCPOC ---
Discharge Care Plan Diagnosis: (1) HTN (hypertension), benign (2) Hypocalcemia (3) Hypomagnesemia (4) Hypokalemia (5) Hyperthyroidism Goals to Promote Your Health * To prevent worsening of your condition and complications * To maintain your health at the optimal level Directions to Meet Your Goals Take your medications as prescribed Follow your dietary instruction Follow activity as directed Keep your appointments as scheduled Take your immunizations and boosters as scheduled If your symptoms worsen call your PCP, if no PCP go to Urgent Care Center or Emergency Room Smoking is Dangerous to Your Health. Avoid second hand smoke Call the 24-hour hour crisis hotline for domestic abuse at Jamie Frausto DO Jan 06, 2017 13:43
--- NOTE | 2017-01-06 13:43 | HHI.PR ---
Subjective Remarks Pt has NO new complaints. Pt is eager for discharge. Objective Vitals Vital Signs Date Time Temp Pulse Resp B/P Pulse Ox O2 Delivery O2 Flow Rate FiO2 01/06/17 12:15 96.6 103 18 126/70 95 01/06/17 09:38 100 01/06/17 08:18 96.6 101 18 126/65 93 01/06/17 05:30 97.5 106 18 122/59 95 01/06/17 00:20 110 145/72 01/06/17 00:00 96.6 97 18 126/58 93 01/05/17 22:20 98 01/05/17 20:00 97.0 96 22 137/71 93 01/05/17 16:00 96.6 46 18 140/92 93 01/05/17 01/05/17 01/06/17 15:00 23:00 07:00 Intake Total 580 ml Output Total 975 ml Balance -395 ml Intake Oral 480 ml IV Total 100 ml Output Urine Total 975 ml # Voids 6 3 # Bowel Movements 1 0 1 Result Diagram: 01/05/17 0515 01/06/17 0555 Objective Remarks General: NAD, AAOx3 Chest: CTA bilaterally Cardiac: Regular Abd: +BS, soft ND/NT Ext: Trace bilateral LE edema A/P Problem List: (1) Bilateral leg pain Status: Acute Plan: - Patient presented to ER with complaint of diffuse pain at multiple sites: Neck , shoulders - improved by the time pt had presented to the ER - likely d/t electrolyte abnormalities (2) HTN (hypertension), benign Status: Chronic Plan: - Pt is on Losartan 100mg po daily, Lasix 40mg po daily, and Bisoprolol/HCTZ at home. - Pts BP was quite elevated at admission. - Pt was continued on the Losartan 100mg po daily - Procardia XL 60mg po daily was added at admission; will send a prescription at discharge - Pt to keep home BP and f/u with PCP in 1 week (3) Hypokalemia Status: Acute Plan: - resolved - Etiology of pt's multiple electrolyte abnormalities is unclear - Pt received repletion. - on repeat BMP pt's labs quickly normalized following repletion - labs NOT c/w diabetes insipidus - Pt is on Lasix and HCTZ as an outpt. - Pt may resume lasix upon discharge - will NOT continue HCTZ upon discharge - He complains of swelling in the LE more recently and has not been seen by Cariology for several years. - Pt refused echocardiogram today - Home Health Care requested - [facility] to obtain repeat BMP on Tuesday, January 10 and send to his PCP, Dr. Santacruz (4) Hypocalcemia Status: Acute Plan: - see above - pt received calcium gluconate in ER - repeat Calcium level WNL (5) Hypomagnesemia Status: Acute Plan: - resolved following repletion (6) Abnormal thyroid blood test Status: Acute Plan: - Pt should have a repeat TSH and free T4 in 4 to 6 weeks (7) Thyroid nodule Status: Acute Plan: - Pt referred to Endocrinology? by his Oncologist (8) H/O lymphoma Status: Acute Plan: - Pt follows with Oncology, Dr. Karina Blackburn (9) H/O prostate cancer Status: Acute Plan: - Pt follows with Urology, Jamie Scott DO Jan 06, 2017 13:43
== END 2017-01-06 14:53 | disposition home health service (06) | DRG 641 ==
LOC: NEPC 02:03 → NEDA 05:06 → N03B 05:50 → HCIN 15:47 → N05A 01-05 13:44
PROVIDERS: ADMIT Hospitalist; ATTEND Hospitalist
DX: E87.6 Hypokalemia (principal); E83.42 Hypomagnesemia; E11.9 Type 2 diabetes mellitus without complications; E83.51 Hypocalcemia; E04.1 Nontoxic single thyroid nodule; E05.90 Thyrotoxicosis, unspecified without thyrotoxic crisis or storm; E78.5 Hyperlipidemia, unspecified; I10 Essential (primary) hypertension; F41.9 Anxiety disorder, unspecified; I44.0 Atrioventricular block, first degree; F17.200 Nicotine dependence, unspecified, uncomplicated; Z85.46 Personal history of malignant neoplasm of prostate; Z85.72 Personal history of non-Hodgkin lymphomas; Z92.3 Personal history of irradiation
CPT/HCPCS: 80048; 80053; 81001; 82550; 83735; 83880; 83930; 83935; 84443; 85025; 93005; 96365; 96368; J0610; J2060; J3475; J3480

== ENCOUNTER 2017-01-06 23:53 | Emergency (ER) | payer MEDICARE ==
[~2017-01-06] VITALS: Ht 177.8 cm; Wt 97.0 kg
[~2017-01-06 23:53] MED LIST changes: +GLUC500T4 PO; +NIFE60TA8 PO; +POTA1TAB77 PO; +VITACAP7 PO; +[UNRECOGNIZED DRUG - CODE]
[2017-01-07 00:06] VITALS: BP 141/77; PULSE 114; RESP 18; TEMP 98.3; O2SAT 95
== END 2017-01-07 01:15 | disposition left against medical advice (07) ==
LOC: NED 23:53
DX: R68.89 Other general symptoms and signs (principal)
CPT/HCPCS: 99281